=== PATIENT | female | born 1995 | race African-American/Black ===

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

== ENCOUNTER 2017-01-06 11:07 | Emergency (ER) | payer MEDICAID ==
[~2017-01-06] VITALS: Ht 182.9 cm; Wt 135.0 kg
[~2017-01-06 11:07] MED LIST changes: +METR0.7528 VAGINAL
[2017-01-06 11:08] VITALS: BP 136/78; PULSE 87; RESP 18; TEMP 98.5; O2SAT 100
[2017-01-06] MEDS ORDERED: cefTRIAXone 250 MG VIAL IM ONE (11:45)
[2017-01-06] MEDS ORDERED: AZITHROMYCIN PWD FOR SUSP 1 GM PACKET PO ONE (11:45)
--- NOTE | 2017-01-06 12:20 | PD ---
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 She says she got the letter yesterday and now she is feeling very anxious. She reports an episode of diarrhea and some LUQ abdominal pain. She denies fever or chills. She has not had any vomiting. She says she was feeling fine until she opened the letter. PFSH Past Medical History Diminished Hearing: No Immunizations Current: No LMP: 12 DEC 2016 : 0 Para: 0 Social History Alcohol Use: No Tobacco Use: No Substance Use: No Allergies-Medications (Allergen,Severity, Reaction): Coded Allergies: shellfish derived (Verified Allergy, Severe, Anaphylaxis, 01/06/17) No Known Allergies (Unverified Allergy, Unknown, 12/07/16) Uncoded Allergies: shellfish (Allergy, Severe, Anaphylaxis, 12/07/16) gets sob and "loses breathe" Reported Meds & Prescriptions Reported Meds & Active Scripts Active Metrogel Vaginal Gel (Metronidazole Vaginal Gel) 0.75 % Gel 1 Appl VAGINAL HS 3 Days Prednisone 20 Mg Tab 20 Mg PO BID 5 Days Famotidine 20 Mg Tab 20 Mg PO BID Diphenhydramine (Diphenhydramine HCl) 25 Mg Cap 25 Mg PO Q6H 3 Days Epipen 2-Dejuan Inj (Epinephrine) 0.3 Mg/0.3 Ml Pfpen 0.3 Mg IM ONCE PRN Review of Systems General / Constitutional: No: Fever, Chills HENT: No: Headaches, Lightheadedness Cardiovascular: No: Chest Pain or Discomfort Respiratory: No: Shortness of Breath Gastrointestinal: Positive: Diarrhea, Abdominal Pain Genitourinary: No: Dysuria Musculoskeletal: No: Myalgias, Edema Skin: No Rash, No Change in Pigmentation Neurologic: No: Weakness, Dizziness Physical Exam Narrative GENERAL: Awake and alert, in no acute distress. SKIN: Focused skin assessment warm/dry. HEAD: Atraumatic. Normocephalic. EYES: Pupils equal and round. No scleral icterus. ENT: Mucous membranes pink and moist. CARDIOVASCULAR: Regular rate and rhythm. No murmur appreciated. RESPIRATORY: No accessory muscle use. Clear to auscultation. Breath sounds equal bilaterally. GASTROINTESTINAL: Abdomen soft, non-tender, nondistended. NEUROLOGICAL: Awake and alert. No obvious cranial nerve deficits. Motor grossly within normal limits. Normal speech. Data Data Last Documented VS Vital Signs Date Time Temp Pulse Resp B/P (MAP) Pulse Ox O2 Delivery O2 Flow Rate FiO2 01/06/17 11:08 98.5 87 18 136/78 (97) 100 Room Air Orders Orders Ceftriaxone Inj (Rocephin Inj) (01/06/17 11:45) Azithromycin Powd Pack (Zithromax Powd P (01/06/17 11:45) MDM Medical Decision Making Medical Screen Exam Complete: Yes Emergency Medical Condition: Yes Medical Record Reviewed: Yes Differential Diagnosis gonorrhea vs chlamydia vs trich Narrative Course Patient is a 21 year old female who comes in to be treated for chlamydia. Exam shows no acute abnormalities. Treated with Rocephin and Azithromycin. Advised her partner needs to be treated as well. Advised on safe sex practices. Advised to follow up with plant anatomist or the health department. Advised to return to the ED as needed for any worsening symptoms. Diagnosis Primary Impression: Chlamydia Patient Instructions: Chlamydia (ED), General Instructions Additional Instructions: Your partner will require treatment for chlamydia as well. Use condoms when having intercourse. Return to the ED as needed for any worsening symptoms. Follow up with plant anatomist. Disposition: 01 DISCHARGE HOME Condition: Stable Salma Blake MD Jan 06, 2017 12:20
== END 2017-01-06 12:58 | disposition home or self-care (01) ==
LOC: NEPD 11:07
DX: A74.9 Chlamydial infection, unspecified (principal); R19.7 Diarrhea, unspecified; Z79.899 Other long term (current) drug therapy
CPT/HCPCS: 96372; 99282; J0696

== ENCOUNTER 2017-03-17 08:21 | Emergency (ER) | payer MEDICAID ==
[~2017-03-17] VITALS: Ht 182.9 cm; Wt 136.0 kg
[2017-03-17 08:34] VITALS: BP 119/71; PULSE 68; RESP 20; TEMP 98.5; O2SAT 98
[2017-03-17 08:39] VITALS: BP 119/71; PULSE 76; PULSE 78; RESP 20; TEMP 98.5; O2SAT 100
--- NOTE | 2017-03-17 08:42 | PD ---
HPI Chief Complaint: Chest Pain Time Seen by Provider: 08:31 Travel History International Travel<30 days: No Contact w/Intl Traveler<30days: No Traveled to known affect area: No History of Present Illness HPI This 21-year-old comes in complaining of sharp chest wall pain anteriorly nonradiating right-sided a 3 out of 10 at rest but worsens to about a 7 out of 10 with activities such as touching it or moving her pectoralis muscles. No alleviating factors. Patient denies any associated factors such as fever, cough , nausea, vomiting, diarrhea, abdominal pain, back pain, Allergies to shellfish Past medical history: Denies Past surgical history: Denies PFSH Past Medical History Anxiety: Yes Diminished Hearing: No Immunizations Current: No : 0 Para: 0 Social History Alcohol Use: No Tobacco Use: No Substance Use: No Allergies-Medications (Allergen,Severity, Reaction): Coded Allergies: shellfish derived (Verified Allergy, Severe, Anaphylaxis, 03/17/17) No Known Allergies (Unverified Allergy, Unknown, 03/17/17) Uncoded Allergies: shellfish (Allergy, Severe, Anaphylaxis, 12/07/16) gets sob and "loses breathe" Reported Meds & Prescriptions Reported Meds & Active Scripts Active No Active Prescriptions or Reported Medications Review of Systems General / Constitutional: No: Fever Eyes: No: Visual changes HENT: No: Headaches Cardiovascular: Positive: Chest Pain or Discomfort Respiratory: No: Shortness of Breath Gastrointestinal: No: Abdominal Pain Genitourinary: No: Dysuria Musculoskeletal: No: Pain Skin: No Rash Neurologic: No: Weakness Psychiatric: No: Depression Endocrine: No: Polydipsia Hematologic/Lymphatic: No: Easy Bruising Physical Exam Narrative GENERAL: SKIN: Warm and dry. HEAD: Atraumatic. Normocephalic. EYES: Pupils equal and round. No scleral icterus. No injection or drainage. ENT: No nasal bleeding or discharge. Mucous membranes pink and moist. NECK: Trachea midline. No JVD. CARDIOVASCULAR: Regular rate and rhythm. RESPIRATORY: No accessory muscle use. Clear to auscultation. Breath sounds equal bilaterally. GASTROINTESTINAL: Abdomen soft, non-tender, nondistended. MUSCULOSKELETAL: Extremities without clubbing, cyanosis, or edema. No obvious deformities. Reproducible chest wall pain on palpation NEUROLOGICAL: Awake and alert. No obvious cranial nerve deficits. Motor grossly within normal limits. Five out of 5 muscle strength in the arms and legs. Normal speech. PSYCHIATRIC: Appropriate mood and affect; insight and judgment normal. Data Data Last Documented VS Vital Signs Date Time Temp Pulse Resp B/P (MAP) Pulse Ox O2 Delivery O2 Flow Rate FiO2 03/17/17 08:39 68 18 100 Room Air 03/17/17 08:39 98.5 119/71 (87) Orders Orders Electrocardiogram (03/17/17 08:31) Complete Blood Count With Diff (03/17/17 08:31) Comprehensive Metabolic Panel (03/17/17 08:31) Troponin I (03/17/17 08:31) Chest, Single Ap (03/17/17 08:31) Ecg Monitoring (03/17/17 08:31) Iv Access Insert/Monitor (03/17/17 08:31) Oximetry (03/17/17 08:31) Oxygen Administration (03/17/17 08:31) Sodium Chloride 0.9% Flush (Ns Flush) (03/17/17 08:45) Labs Laboratory Tests Test 03/17/17 08:48 White Blood Count 5.8 TH/MM3 Red Blood Count 4.37 MIL/MM3 Hemoglobin 12.3 GM/DL Hematocrit 36.3 % Mean Corpuscular Volume 83.0 FL Mean Corpuscular Hemoglobin 28.1 PG Mean Corpuscular Hemoglobin Concent 33.8 % Red Cell Distribution Width 15.2 % Platelet Count 276 TH/MM3 Mean Platelet Volume 8.2 FL Neutrophils (%) (Auto) 52.0 % Lymphocytes (%) (Auto) 37.7 % Monocytes (%) (Auto) 7.3 % Eosinophils (%) (Auto) 2.4 % Basophils (%) (Auto) 0.6 % Neutrophils # (Auto) 3.0 TH/MM3 Lymphocytes # (Auto) 2.2 TH/MM3 Monocytes # (Auto) 0.4 TH/MM3 Eosinophils # (Auto) 0.1 TH/MM3 Basophils # (Auto) 0.0 TH/MM3 CBC Comment DIFF FINAL Differential Comment Blood Urea Nitrogen 8 MG/DL Creatinine 0.82 MG/DL Random Glucose 89 MG/DL Total Protein 7.3 GM/DL Albumin 3.3 GM/DL Calcium Level 9.0 MG/DL Alkaline Phosphatase 69 U/L Aspartate Amino Transf (AST/SGOT) 11 U/L Alanine Aminotransferase (ALT/SGPT) 16 U/L Total Bilirubin 0.2 MG/DL Sodium Level 140 MEQ/L Potassium Level 3.8 MEQ/L Chloride Level 104 MEQ/L Carbon Dioxide Level 28.3 MEQ/L Anion Gap 8 MEQ/L Estimat Glomerular Filtration Rate 109 ML/MIN Troponin I LESS THAN 0.02 NG/ML MDM Medical Decision Making Medical Screen Exam Complete: Yes Emergency Medical Condition: Yes Medical Record Reviewed: Yes Interpretation(s) EKG: Normal sinus rhythm with first-degree AV block, 69 bpm, no STEMI pattern. Some motion artifact noted on the EKG as well. Differential Diagnosis Atypical chest pain versus chest wall pain versus rib fracture versus pneumothorax versus stemI atypical Narrative Course CBC is negative for any leukocytosis, anemia, temporal cytosis or trauma cytopenia. Patient's complete metabolic profile had normal electrolytes, normal kidney functions, normal liver functions, and normal troponin. Chest x- ray did not show any evidence of pneumothorax or pleural effusions or pneumonia. Diagnosis Primary Impression: Acute chest wall pain Patient Instructions: Chest Wall Pain (ED), General Instructions Scripts Naproxen DR (Naproxen EC) 375 Mg Tabdr 375 MG PO BID, #20 TAB 0 Refills Prov: Paco Tang MD 03/17/17 Cyclobenzaprine (Flexeril) 10 Mg Tab 10 MG PO TID for Muscle Spasm, #15 TAB 0 Refills Prov: Paco Tang MD 03/17/17 Disposition: 01 DISCHARGE HOME Condition: Stable Paco Tang MD Mar 17, 2017 08:42
[2017-03-17] MEDS ORDERED: SODIUM CHLORIDE 0.9% FLUSH 10 ML FLUSH IVF PRN (08:45)
[2017-03-17 08:59] LABS: BASOPHIL % 0.6 % (0.0-2.0); EOSINOPHIL # 0.1 TH/MM3 (0-0.4); EOSINOPHIL % 2.4 % (0.0-4.0); HEMATOCRIT 36.3 % (35.0-46.0); HEMOGLOBIN 12.3 GM/DL (11.6-15.3); LYMPH % 37.7 % (9.0-44.0); LYMPHOCYTE # 2.2 TH/MM3 (1.0-4.8); MEAN CORPUSCULAR HEMOGLOBIN 28.1 PG (27.0-34.0); MEAN CORPUSCULAR HGB CONC 33.8 % (32.0-36.0); MEAN PLATELET VOLUME 8.2 FL (7.0-11.0); MONO % 7.3 % (0.0-8.0); MONOCYTE # 0.4 TH/MM3 (0-0.9); PLATELET COUNT 276 TH/MM3 (150-450); RED BLOOD COUNT 4.37 MIL/MM3 (4.00-5.30); RED CELL DISTRIBUTION WIDTH 15.2 % (11.6-17.2); WHITE BLOOD COUNT 5.8 TH/MM3 (4.0-11.0)
--- NOTE | 2017-03-17 09:14 | RADRPT ---
EXAM DATE/TIME: 03/17/2017 08:54 [facility] COMPARISON: No previous studies available for comparison. INDICATIONS : Chest pain. MEDICAL HISTORY : None. SURGICAL HISTORY : None. ENCOUNTER: Initial ACUITY: 1 day PAIN SCORE: 6/10 LOCATION: Bilateral chest FINDINGS: A single view of the chest demonstrates the lungs to be symmetrically aerated without evidence of mas s, infiltrate or effusion. The cardiomediastinal contours are unremarkable. Osseous structures are intact. CONCLUSION: No acute disease. Johnnie Yun MD FACR on March 17, 2017 at 9:12 Board Certified Radiologist. This report was verified electronically.
[2017-03-17 09:17] LABS: ALBUMIN 3.3 GM/DL (3.4-5.0); ALT (GPT) 16 U/L (9-42); AST (GOT) 11 U/L (16-38); BICARBONATE 28.3 MEQ/L (21.0-32.0); BLOOD UREA NITROGEN 8 MG/DL (7-18); CHLORIDE 104 MEQ/L (98-107); CREATININE 0.82 MG/DL (0.50-1.00); GLOMERULAR FILTRATION RATE 109 ML/MIN (>89); GLUCOSE,RANDOM 89 MG/DL (74-106); SODIUM (NA) 140 MEQ/L (136-145)
[2017-03-17 09:21] LABS: ALKALINE PHOSPHATASE 69 U/L (45-117); TOTAL BILIRUBIN ADULT 0.2 MG/DL (0.2-1.0); TOTAL PROTEIN 7.3 GM/DL (6.4-8.2); TROPONIN I LESS THAN 0.02 NG/ML (0.02-0.05)
[2017-03-17] MEDS ORDERED: CYCL10TA PO (11:09)
[2017-03-17] MEDS ORDERED: NAPR375T4 PO (11:09)
[2017-03-17 11:42] VITALS: BP 133/62; PULSE 67; RESP 20; O2SAT 96
--- NOTE | 2017-03-17 14:57 | EKG ---
Date Performed: 03/17/2017 Time Performed: 08:35:02 PTAGE: 21 years EKG: Sinus rhythm WITH FIRST DEGREE AV BLOCK Since previous tracing, no significant change noted ABNORMAL ECG PREVIOUS TRACING : 10/27/2016 02.24 DOCTOR: Swathi Gayle Interpretating Date/Time 03/17/2017 14:55:37
== END 2017-03-17 12:11 | disposition home or self-care (01) ==
LOC: NEPC 08:21
DX: R07.89 Other chest pain (principal); I44.0 Atrioventricular block, first degree; R94.31 Abnormal electrocardiogram [ECG] [EKG]; F41.9 Anxiety disorder, unspecified
CPT/HCPCS: 71045; 80053; 84484; 85025; 93005

== ENCOUNTER 2017-05-07 00:17 | Emergency (ER) | payer MEDICAID ==
[~2017-05-07] VITALS: Ht 182.9 cm; Wt 136.4 kg
[~2017-05-07 00:17] MED LIST changes: +CYCL10TA PO; -DIPH25CA PO; -EPIP0.3I IM; -FAMO20TA2 PO; -METR0.7528 VAGINAL; +NAPR375T4 PO; -PRED20 PO
[2017-05-07 00:22] VITALS: BP 119/55; PULSE 77; RESP 20; TEMP 97.9; O2SAT 99
[2017-05-07] MEDS ORDERED: SODIUM CHLOR 0.9% 1000 ML INJ 1,000 ML IV ONE (00:34)
[2017-05-07] MEDS ORDERED: SODIUM CHLORIDE 0.9% FLUSH 10 ML FLUSH IVF PRN (00:45)
[2017-05-07] MEDS ORDERED: KETOROLAC TROMETHAMINE 30 MG/ML (IVP) VIAL IVP ONE (00:45)
[2017-05-07] MEDS ORDERED: diphenhydrAMINE HCL 50 MG/ML VIAL IVP ONE (00:45)
[2017-05-07] MEDS ORDERED: PROCHLORPERAZINE INJ 10 MG/2 ML VIAL IVP ONE (00:45)
[2017-05-07 01:31] LABS: AUTOMATED NEUTROPHIL # 4.5 TH/MM3 (1.8-7.7); BASOPHIL % 0.3 % (0.0-2.0); EOSINOPHIL # 0.2 TH/MM3 (0-0.4); EOSINOPHIL % 2.5 % (0.0-4.0); HEMATOCRIT 33.6 % (35.0-46.0); HEMOGLOBIN 10.9 GM/DL (11.6-15.3); LYMPHOCYTE # 2.8 TH/MM3 (1.0-4.8); MEAN CELL VOLUME 85.1 FL (80.0-100.0); MEAN CORPUSCULAR HEMOGLOBIN 27.7 PG (27.0-34.0); MEAN CORPUSCULAR HGB CONC 32.5 % (32.0-36.0); MEAN PLATELET VOLUME 8.9 FL (7.0-11.0); MONO % 6.1 % (0.0-8.0); MONOCYTE # 0.5 TH/MM3 (0-0.9); NEUT % 56.1 % (16.0-70.0); PLATELET COUNT 276 TH/MM3 (150-450); RED BLOOD COUNT 3.95 MIL/MM3 (4.00-5.30); RED CELL DISTRIBUTION WIDTH 14.9 % (11.6-17.2); WHITE BLOOD COUNT 8.1 TH/MM3 (4.0-11.0)
[2017-05-07 01:57] LABS: BICARBONATE 26.8 MEQ/L (21.0-32.0); BLOOD UREA NITROGEN 7 MG/DL (7-18); CALCIUM 8.2 MG/DL (8.5-10.1); CHLORIDE 105 MEQ/L (98-107); CREATININE 0.86 MG/DL (0.50-1.00); GLOMERULAR FILTRATION RATE 103 ML/MIN (>89); GLUCOSE,RANDOM 80 MG/DL (74-106); SODIUM (NA) 140 MEQ/L (136-145)
--- NOTE | 2017-05-07 02:20 | PD ---
HPI Chief Complaint: Headache Time Seen by Provider: 00:24 Travel History International Travel<30 days: No Contact w/Intl Traveler<30days: No Traveled to known affect area: No History of Present Illness HPI Is a 21-year-old young woman presents emerged from complaining of headache. 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 She went back to her dorm room where apparently a pipe and busted it smelled like see weight and she states her headache got worse she began to feel sick to her stomach. Symptoms worsened and so she called an ambulance and was brought in today. No history of significant headaches. She otherwise had been feeling well. No numbness tingling weakness other neurologic symptoms. She does have some photophobia. History Past Medical History Medical History: Denies Significant Hx Tetanus Vaccination: Never Vaccinated Influenza Vaccination: No LMP: on 05/07/17 : 0 Para: 0 Past Surgical History Surgical History: No Previous Surgery Social History Alcohol Use: No Tobacco Use: No Allergies-Medications (Allergen,Severity, Reaction): Coded Allergies: shellfish derived (Verified Allergy, Severe, Anaphylaxis, 03/17/17) No Known Allergies (Unverified Allergy, Unknown, 03/17/17) Uncoded Allergies: shellfish (Allergy, Severe, Anaphylaxis, 12/07/16) gets sob and "loses breathe" Reported Meds & Prescriptions Reported Meds & Active Scripts Active Review of Systems Except as stated in HPI: all other systems reviewed are Neg Physical Exam Narrative GENERAL: Well-appearing 21-year-old young woman, tearful and crying. SKIN: Focused skin assessment warm/dry. HEAD: Atraumatic. Normocephalic. EYES: Pupils equal and round. No scleral icterus. No injection or drainage. ENT: No nasal bleeding or discharge. Mucous membranes pink and moist. NECK: Trachea midline. No JVD. CARDIOVASCULAR: Regular rate and rhythm. No murmur appreciated. RESPIRATORY: No accessory muscle use. Clear to auscultation. Breath sounds equal bilaterally. GASTROINTESTINAL: Abdomen soft, non-tender, nondistended. Hepatic and splenic margins not palpable. MUSCULOSKELETAL: No obvious deformities. No clubbing. No cyanosis. No edema. NEUROLOGICAL: Awake and alert. No obvious cranial nerve deficits. Motor grossly within normal limits. Normal speech. Data Data Last Documented VS Vital Signs Date Time Temp Pulse Resp B/P (MAP) Pulse Ox O2 Delivery O2 Flow Rate FiO2 05/07/17 00:31 99 Room Air 05/07/17 00:22 97.9 77 20 119/55 (76) Orders Orders Complete Blood Count With Diff (05/07/17 00:34) Basic Metabolic Panel (Bmp) (05/07/17 00:34) Beta Hcg (Quant/Titer) (05/07/17 00:34) Iv Access Insert/Monitor (05/07/17 00:34) Sodium Chloride 0.9% Flush (Ns Flush) (05/07/17 00:45) Ketorolac Inj (Toradol Inj) (05/07/17 00:45) Prochlorperazine Inj (Compazine Inj) (05/07/17 00:45) Diphenhydramine Inj (Benadryl Inj) (05/07/17 00:45) Sodium Chlor 0.9% 1000 Ml Inj (Ns 1000 M (05/07/17 00:34) Labs Laboratory Tests Test 05/07/17 00:50 White Blood Count 8.1 TH/MM3 Red Blood Count 3.95 MIL/MM3 Hemoglobin 10.9 GM/DL Hematocrit 33.6 % Mean Corpuscular Volume 85.1 FL Mean Corpuscular Hemoglobin 27.7 PG Mean Corpuscular Hemoglobin Concent 32.5 % Red Cell Distribution Width 14.9 % Platelet Count 276 TH/MM3 Mean Platelet Volume 8.9 FL Neutrophils (%) (Auto) 56.1 % Lymphocytes (%) (Auto) 35.0 % Monocytes (%) (Auto) 6.1 % Eosinophils (%) (Auto) 2.5 % Basophils (%) (Auto) 0.3 % Neutrophils # (Auto) 4.5 TH/MM3 Lymphocytes # (Auto) 2.8 TH/MM3 Monocytes # (Auto) 0.5 TH/MM3 Eosinophils # (Auto) 0.2 TH/MM3 Basophils # (Auto) 0.0 TH/MM3 CBC Comment DIFF FINAL Differential Comment Blood Urea Nitrogen 7 MG/DL Creatinine 0.86 MG/DL Random Glucose 80 MG/DL Calcium Level 8.2 MG/DL Sodium Level 140 MEQ/L Potassium Level 3.5 MEQ/L Chloride Level 105 MEQ/L Carbon Dioxide Level 26.8 MEQ/L Anion Gap 8 MEQ/L Estimat Glomerular Filtration Rate 103 ML/MIN Human Chorionic Gonadotropin, Quant LESS THAN 1 MIU/ML MDM Medical Decision Making Medical Screen Exam Complete: Yes Emergency Medical Condition: Yes Differential Diagnosis Migraine, SAH, anxiety, tension headache, other Narrative Course Medical decision making Is a 21-year-old woman presents emerged from complaining of headache, lightheadedness, GI upset. She looks well. She has no neurologic symptoms or findings on exam. She is no history of headache. Does not seem abrupt in onset or suggestive of SAH. Will try medications, likely outpatient follow-up. Diagnosis Primary Impression: Headache Patient Instructions: General Instructions Additional Instructions: Drink plenty fluids stay well-hydrated. Use [id number] acetaminophen or ibuprofen if needed for headache. Follow-up with her primary doctor in the next 3-5 days. Med/Other Pt SpecificInfo: No Change to Meds Disposition: 01 DISCHARGE HOME Condition: Stable Narciso Carter MD May 07, 2017 02:20
== END 2017-05-07 02:30 | disposition home or self-care (01) ==
LOC: NEPE 00:17
DX: R51 Headache (principal); R42 Dizziness and giddiness; R10.9 Unspecified abdominal pain
CPT/HCPCS: 80048; 84702; 85025; 96361; 96374; 96375; 99284; J0780; J1200; J1885; J7030

== ENCOUNTER 2017-05-28 20:50 | Emergency (ER) | payer MEDICAID ==
[~2017-05-28] VITALS: Ht 182.9 cm; Wt 142.0 kg
[2017-05-28 21:12] VITALS: BP 115/76; PULSE 78; RESP 16; TEMP 98.7; O2SAT 100
--- NOTE | 2017-05-28 22:40 | PD ---
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 She denies any noted blood in the stool, however she has had blood on the toilet paper when she wipes. He keeps recurring with every bowel movement she has. She is having more frequent bowel movements for the last 2 weeks. She is moving her bowels 3 x per day. Prior to this she moved her bowels once every 2-3 days. The patient incidentally also reports having a vaginal discharge that began a week ago. She denies having any new partners or concerns about sexually transmitted infections. She reports that the discharge is white in color, however there is an odor. She denies having any abdominal pain or pelvic pain. She denies having any nausea or vomiting. She denies having any anal pain or swelling. On review of systems otherwise, the patient denies having any known recent fevers, cough or congestion, neck pain, chest pain, shortness of breath, abdominal pain, vomiting, diarrhea, urinary symptoms, or neurologic symptoms. She has urinary frequency that she reports is chronic. LMP: 05/07/2017 [facility] Past Medical History Narrative Medical The patient's past medical history is significant for shellfish allergy and anxiety. Asthma: Yes Anxiety: Yes Diminished Hearing: No Immunizations Current: Yes ?: Not LMP: 05/07/2017 : 0 Para: 0 Past Surgical History Narrative Surgical The patient's past surgical history is reportedly none. Surgical History: No Previous Surgery Social History Alcohol Use: No Tobacco Use: No Substance Use: No Allergies-Medications (Allergen,Severity, Reaction): Coded Allergies: shellfish derived (Verified Allergy, Unknown, 05/28/17) Reported Meds & Prescriptions Reported Meds & Active Scripts Active No Active Prescriptions or Reported Medications Review of Systems General / Constitutional: No: Fever Eyes: No: Visual changes HENT: No: Headaches Cardiovascular: No: Chest Pain or Discomfort Respiratory: No: Shortness of Breath Gastrointestinal: Positive: Hematochezia, Changes in Bowel Habits (more frequent bowel movments), No: Nausea, Vomiting, Diarrhea, Abdominal Pain Genitourinary: Positive: Discharge, No: Dysuria Musculoskeletal: No: Pain Skin: No Rash Neurologic: No: Weakness Psychiatric: No: Depression Endocrine: No: Polydipsia Hematologic/Lymphatic: No: Easy Bruising Physical Exam Narrative General: The patient is a well-developed well-nourished female in no acute distress. Head and Neck exam: Head is normocephalic atraumatic. Eyes: EOMI, pupils are equal round and reactive to light. Nose: Midline septum with pink mucous membranes Mouth: Dentition unremarkable. Moist mucus membranes. Posterior oropharynx is not erythematous. No tonsillar hypertrophy. Uvula midline. Airway patent. Neck: No palpable lymphadenopathy. No nuchal rigidity. No thyromegaly. Cardiovascular: Regular rate and rhythm without murmurs, gallops, or rubs. Lungs: Clear to auscultation bilaterally. No wheezes, rhonchi, or rales. Abdomen: Soft, without tenderness to palpation in all 4 quadrants of the abdomen. No guarding, rebound, or rigidity. Normal bowel sounds are audible. No tenderness on palpation of McBurney's point. Negative Granger sign Extremities: No clubbing, cyanosis, or edema. 2+ pulses in all 4 extremities. No calf tenderness on palpation. Back: No spinous process tenderness to palpation. No costovertebral angle tenderness to palpation. Neurologic Exam: Grossly nonfocal. Skin Exam: No rash noted. Intact skin that is warm and dry. RECTAL EXAM: No masses or tenderness, stool is brown. Stool is Hemoccult negative. Gynecologic exam: The patient was placed in the dorsal lithotomy position. Her external genitalia were examined. She had no evidence of rash or lesions. The speculum was placed into her vagina and the cervix was identified. She had a a thin white to yellow discharge noted. No cervical friability. On Bimanual exam: she has no cervical motion tenderness. No adnexal tenderness or prominence noted on palpation. No uterine tenderness or enlargement noted on palpation. Data Data Last Documented VS Vital Signs Date Time Temp Pulse Resp B/P (MAP) Pulse Ox O2 Delivery O2 Flow Rate FiO2 05/29/17 03:35 05/29/17 03:00 82 18 99 Room Air 05/28/17 21:12 98.7 Orders Orders Complete Blood Count With Diff (05/28/17 23:04) Comprehensive Metabolic Panel (05/28/17 23:04) Prothrombin Time / Inr (Pt) (05/28/17 23:04) Act Partial Throm Time (Ptt) (05/28/17 23:04) Urinalysis - C+S If Indicated (05/28/17 23:04) Westergren Sedimentation Rate (05/28/17 23:04) Iv Access Insert/Monitor (05/28/17 23:04) Ecg Monitoring (05/28/17 23:04) Oximetry (05/28/17 23:04) Ed Urine Pregnancytest Poc (05/28/17 23:04) Gc And Chlamydia Pcr (05/28/17 23:15) Wet Prep Profile (05/28/17 23:15) Ceftriaxone Inj (Rocephin Inj) (05/29/17 02:45) Azithromycin Powd Pack (Zithromax Powd P (05/29/17 02:45) Labs Laboratory Tests Test 05/28/17 23:20 05/29/17 01:40 White Blood Count 8.0 TH/MM3 Red Blood Count 4.37 MIL/MM3 Hemoglobin 11.9 GM/DL Hematocrit 36.4 % Mean Corpuscular Volume 83.3 FL Mean Corpuscular Hemoglobin 27.2 PG Mean Corpuscular Hemoglobin Concent 32.7 % Red Cell Distribution Width 15.2 % Platelet Count 312 TH/MM3 Mean Platelet Volume 8.3 FL Neutrophils (%) (Auto) 59.4 % Lymphocytes (%) (Auto) 32.4 % Monocytes (%) (Auto) 6.5 % Eosinophils (%) (Auto) 1.3 % Basophils (%) (Auto) 0.4 % Neutrophils # (Auto) 4.7 TH/MM3 Lymphocytes # (Auto) 2.6 TH/MM3 Monocytes # (Auto) 0.5 TH/MM3 Eosinophils # (Auto) 0.1 TH/MM3 Basophils # (Auto) 0.0 TH/MM3 CBC Comment DIFF FINAL Differential Comment Erythrocyte Sedimentation Rate 31 mm/hr Prothrombin Time 10.2 SEC Prothromb Time International Ratio 1.0 RATIO Activated Partial Thromboplast Time 26.6 SEC Urine Color LIGHT-YELLOW Urine Turbidity CLEAR Urine pH 6.5 Urine Specific [place] 1.020 Urine Protein NEG mg/dL Urine Glucose (UA) NEG mg/dL Urine Ketones NEG mg/dL Urine Occult Blood NEG Urine Nitrite NEG Urine Bilirubin NEG Urine Urobilinogen LESS THAN 2.0 MG/DL Urine Leukocyte Esterase NEG Urine RBC LESS THAN 1 /hpf Urine WBC LESS THAN 1 /hpf Urine Squamous Epithelial Cells 1 /hpf Urine Mucus FEW /lpf Microscopic Urinalysis Comment CULT NOT INDICATED Blood Urea Nitrogen 14 MG/DL Creatinine 0.86 MG/DL Random Glucose 84 MG/DL Total Protein 7.9 GM/DL Albumin 3.4 GM/DL Calcium Level 9.1 MG/DL Alkaline Phosphatase 84 U/L Aspartate Amino Transf (AST/SGOT) 25 U/L Alanine Aminotransferase (ALT/SGPT) 25 U/L Total Bilirubin 0.2 MG/DL Sodium Level 140 MEQ/L Potassium Level 3.9 MEQ/L Chloride Level 105 MEQ/L Carbon Dioxide Level 27.2 MEQ/L Anion Gap 8 MEQ/L Estimat Glomerular Filtration Rate 103 ML/MIN Clue Cells (Wet Prep) NONE SEEN Vaginal Trichomonas (Wet Prep) NONE SEEN Vaginal Yeast (Wet Prep) NONE SEEN Chlamydia trachomatis DNA (PCR) NOT DETECTED Neisseria gonorrhoeae DNA (PCR) NOT DETECTED MDM Medical Decision Making Medical Screen Exam Complete: Yes Emergency Medical Condition: Yes Medical Record Reviewed: Yes Differential Diagnosis Regarding bleeding from the rectum: Anal fissure, versus hemorrhoid, versus inflammatory bowel disease Regarding the patient's vaginal discharge: Trichomoniasis, versus gonorrhea, versus chlamydia, versus bacterial vaginosis, versus yeast Narrative Course During the course of the patient's emergency department visit, the patient's history, examination, and differential diagnosis were reviewed with the patient. The patient was placed on a security monitor with oximetry and frequent blood pressure monitoring. The patient had IV access obtained and blood work sent for analysis. A bedside test was negative. The patient's laboratory studies were reviewed and remarkable for a white count of 8, hemoglobin 11.9, platelets 312 with a normal differential. Sedimentation rate is slightly elevated at 31 CMP is within normal, PT PTT within normal limits. Urinalysis on is within normal limits, wet prep is negative. The patient was given Rocephin 1 g IV, Zithromax 1 g p.o. The patient on examination has no evidence of rectal bleeding. The patient's hemoglobin is stable, vital signs all within normal limits. The patient was instructed that if she continues to have intermittent episodes of rectal bleeding she should follow-up with her primary care physician for consideration of referral to dishwasher busser for colonoscopy and further evaluation to rule out an underlying inflammatory bowel disease. The patient is resting comfortably and feels better, is alert and in no distress. The patient's results and examination findings were discussed with the patient. The repeat examination is unremarkable and benign. The history, exam, diagnostic testing, and current condition do not suggest any significant pathology to warrant further testing, continued ED treatment, admission, or surgical evaluation at this point. The vital signs have been stable. The patient does not have uncontrollable pain, intractable vomiting, or other significant symptoms. The patient's condition is stable and appropriate for discharge. The patient will pursue further outpatient evaluation with a primary care physician or other designated or consulting physician as indicated in the discharge instructions. The patient expressed understanding and was agreeable with this plan. Diagnosis Primary Impression: Bright red blood per rectum Additional Impression: Vaginitis Qualified Codes: N76.0 - Acute vaginitis Referrals: Primary Care Physician 1 week Patient Instructions: General Instructions, Vaginitis (ED) Additional Instructions: The patient is instructed to follow-up with her primary care physician for reexamination in 1 week. If she has recurrent bright red blood per rectum, the patient is instructed that she will need to follow-up with her primary care physician for referral to a dishwasher busser for colonoscopy. Scripts No Active Prescriptions or Reported Meds Disposition: 01 DISCHARGE HOME Condition: Gladys Arthur MD May 28, 2017 22:40
[2017-05-28 23:30] VITALS: RESP 18; O2SAT 98
[2017-05-28 23:38] LABS: AUTOMATED NEUTROPHIL # 4.7 TH/MM3 (1.8-7.7); BASOPHIL % 0.4 % (0.0-2.0); EOSINOPHIL # 0.1 TH/MM3 (0-0.4); EOSINOPHIL % 1.3 % (0.0-4.0); HEMATOCRIT 36.4 % (35.0-46.0); HEMOGLOBIN 11.9 GM/DL (11.6-15.3); LYMPH % 32.4 % (9.0-44.0); LYMPHOCYTE # 2.6 TH/MM3 (1.0-4.8); MEAN CELL VOLUME 83.3 FL (80.0-100.0); MEAN CORPUSCULAR HEMOGLOBIN 27.2 PG (27.0-34.0); MEAN CORPUSCULAR HGB CONC 32.7 % (32.0-36.0); MEAN PLATELET VOLUME 8.3 FL (7.0-11.0); MONO % 6.5 % (0.0-8.0); MONOCYTE # 0.5 TH/MM3 (0-0.9); NEUT % 59.4 % (16.0-70.0); PLATELET COUNT 312 TH/MM3 (150-450); RED BLOOD COUNT 4.37 MIL/MM3 (4.00-5.30); RED CELL DISTRIBUTION WIDTH 15.2 % (11.6-17.2)
[2017-05-28 23:45] LABS: BILIRUBIN, URINE NEG (NEG); BLOOD, URINE NEG (NEG); GLUCOSE,URINE NEG (NEG); KETONE, URINE NEG (NEG); MUCUS URINE FEW /lpf (OCC); NITRITE,URINE NEG (NEG); PH, URINE 6.5 (5.0-8.5); SQUAMOUS EPITHELIAL CELL URINE 1 /hpf (0-5); URINE COLOR LIGHT-YELLOW (YELLW/STRAW); URINE LEUKOCYTE ESTERASE NEG (NEG)
[2017-05-28 23:47] LABS: PROTHROMBIN TIME - PATIENT 10.2 SEC (9.8-11.6)
[2017-05-28 23:54] LABS: ALBUMIN 3.4 GM/DL (3.4-5.0); AST (GOT) 25 U/L (16-38); BICARBONATE 27.2 MEQ/L (21.0-32.0); BLOOD UREA NITROGEN 14 MG/DL (7-18); CALCIUM 9.1 MG/DL (8.5-10.1); CHLORIDE 105 MEQ/L (98-107); CREATININE 0.86 MG/DL (0.50-1.00); GLOMERULAR FILTRATION RATE 103 ML/MIN (>89); GLUCOSE,RANDOM 84 MG/DL (74-106); SODIUM (NA) 140 MEQ/L (136-145)
[2017-05-28 23:58] LABS: ALKALINE PHOSPHATASE 84 U/L (45-117); ALT (GPT) 25 U/L (9-42); TOTAL BILIRUBIN ADULT 0.2 MG/DL (0.2-1.0); TOTAL PROTEIN 7.9 GM/DL (6.4-8.2)
[2017-05-29] VITALS: BP 127/71; PULSE 71; RESP 18; O2SAT 100
[2017-05-29] MEDS ORDERED: cefTRIAXone INJ 1,000 MG in SODIUM CHLORIDE 0.9% INJ 100 ML IV ONE (02:45)
[2017-05-29] MEDS ORDERED: AZITHROMYCIN PWD FOR SUSP 1 GM PACKET PO ONE (02:45)
[2017-05-29 03:00] VITALS: BP 117/80; PULSE 82; RESP 18; O2SAT 99
== END 2017-05-29 03:40 | disposition home or self-care (01) ==
LOC: NEPC 20:50
DX: K62.5 Hemorrhage of anus and rectum (principal); N76.0 Acute vaginitis; J45.909 Unspecified asthma, uncomplicated; R70.0 Elevated erythrocyte sedimentation rate; Z91.013 Allergy to seafood
CPT/HCPCS: 80053; 81001; 84703; 85025; 85610; 85652; 85730; 87210; 87491; 87591; 96365; 99284; J0696